=== PATIENT | female | born 1965 | race Caucasian/White ===

== ENCOUNTER 2016-11-21 09:40 | Emergency (ER) | payer OTHER ==
[~2016-11-21] VITALS: Ht 165.1 cm; Wt 76.5 kg
[~2016-11-21 09:40] MED LIST: BACITUD TOP; CEPH-443 PO; HYDR-906 PO
[2016-11-21 09:42] VITALS: Ht 165.1 cm; Wt 76.5 kg
[2016-11-21] MEDS ORDERED: PANTOPRAZOLE (EC) 40 MG TAB PO ONE (10:30)
[2016-11-21] MEDS ORDERED: IBUPROFEN 600 MG TAB PO ONE (10:30)
--- NOTE | 2016-11-21 10:50 | RADRPT ---
PROCEDURE: XR Left Ankle. CLINICAL INDICATION: Trauma TECHNIQUE: AP, oblique and lateral views of the left ankle were performed. COMPARISON: None. FINDINGS: Lateral soft tissue swelling. Approximate 7 mm fracture fragment arising from the anterior lateral calcaneus. No dislocation is seen. Plantar and small posterior calcaneal spurs. IMPRESSION: Lateral soft tissue swelling. Approximate 7 mm fracture fragment arising from the anterior lateral calcaneus. RPTAT: HJES .Randy Clayton MD, MD Date Time Electronically viewed and signed by .Randy Clayton MD, on 11/21/2016 10:50 .S/
--- NOTE | 2016-11-21 10:53 | RADRPT ---
PROCEDURE: XR Left Foot. CLINICAL INDICATION: Trauma TECHNIQUE: AP, lateral and oblique views of the left foot was obtained. The images were reviewed on a PACS workstation. COMPARISON: None. FINDINGS: There is an approximate 7 mm fracture fragment arising from the anterior lateral calcaneus. No disl ocation is seen. Plantar and small posterior calcaneal spurs. IMPRESSION: 7 mm fracture fragment arising from the anterior lateral calcaneus. RPTAT: HJES .Randy Clayton MD, MD Date Time Electronically viewed and signed by .Randy Clayton MD, on 11/21/2016 10:52 .S/
[2016-11-21] MEDS ORDERED: HYDR-906 PO (11:16)
[2016-11-21] MEDS ORDERED: NAPR-260 PO (11:16)
[2016-11-21 12:16] VITALS: BP 125/69; PULSE 69; RESP 20; TEMP 98.1
--- NOTE | 2016-11-21 17:27 | ERD ---
ER Documentation Chief Complaint Date/Time DATE: 11/21/16 TIME: 17:24 Chief Complaint LEFT KNEE PAIN, ANXIETY ATTACK HPI This patient is a 51-year-old female with no significant medical history presenting to the emergency department for left ankle pain which occurred after injury today during a exercising class. At approximately 9 AM the patient was exercising and twisted her left ankle. The patient had no head injury or loss of consciousness. The patient is taken no medication for relief of symptoms. There are no other symptoms to report currently. ROS All systems reviewed and are negative except as per history of present illness. Medications Home Meds Active Scripts Naproxen* (Naprosyn*) 500 Mg Tablet, 500 MG PO BID Y for PAIN AND/OR INFLAMMATION, #30 TAB Prov:TAVO DICKERSON PA-C 11/21/16 Hydrocodone/Acetaminophen ([place] 5-325 Tablet) 1 Each Tablet, 1 TAB PO Q6H Y for PAIN, #10 TAB Prov:TAVO DICKERSON PA-C 11/21/16 Cephalexin* (Keflex*) 500 Mg Capsule, 500 MG PO QID for 7 Days, CAP Prov:ELIA LEBRON PA-C 04/09/16 Bacitracin* (Bacitracin Oint (UD)*) 1 Applic Oint, 1 APPLIC TOP ONCE, #10 PKT APPLY TO Prov:ELIA LEBRON PA-C 04/09/16 Hydrocodone/Acetaminophen ([place] 5-325 Tablet) 1 Each Tablet, 1 EACH PO Q8 for 5 Days, TAB Prov:LUIS CABEZAS DO 03/22/16 Allergies Allergies: Coded Allergies: No Known Allergy (Unverified , 11/21/16) PMhx/Soc Medical and Surgical Hx: pt denies Medical Hx, pt denies Surgical Hx History of Surgery: No Anesthesia Reaction: No Hx Neurological Disorder: No Hx Respiratory Disorders: No Hx Cardiac Disorders: No Hx Psychiatric Problems: No Hx Miscellaneous Medical Probl: No Hx Alcohol Use: No Hx Substance Use: No Hx Tobacco Use: No Smoking Status: Never smoker FmHx Noncontributory for chief complaint Physical Exam Vitals Vital Signs Date Time Temp Pulse Resp B/P Pulse Ox O2 Delivery O2 Flow Rate FiO2 11/21/16 12:16 98.1 69 20 125/69 98 Room Air 11/21/16 09:42 98.1 89 24 159/78 99 Physical Exam Const: The patient is resting comfortably in no acute distress. Head: Atraumatic Eyes: Normal Conjunctiva ENT: Normal External Ears, Nose and Mouth. Neck: Full range of motion..~ No meningismus. Resp: Clear to auscultation bilaterally Cardio: Regular rate and rhythm, no murmurs Abd: Soft, non tender, non distended. Normal bowel sounds Skin: No petechiae or rashes Back: No midline or flank tenderness Ext: There is mild swelling to the lateral portion of the left malleolus. Limited range of motion secondary to pain. No ecchymosis or deformity noted. Neur: Awake and alert Psych: Normal Mood and Affect Results 24 hrs Current Medications Medications (Trade) Dose Ordered Sig/Ric Route PRN Reason Start Time Stop Time Status Last Admin Dose Admin Ibuprofen (Motrin) 600 mg ONCE ONCE PO 11/21/16 10:30 11/21/16 10:31 DC 11/21/16 10:51 Pantoprazole (Protonix Tab) 40 mg ONCE ONCE PO 11/21/16 10:30 11/21/16 10:31 DC 11/21/16 10:52 Procedures/MDM 51-year-old female presents secondary to complaints of left ankle pain after injury today. On physical examination there is some tenderness palpation of the left lateral malleolus. There is slight decreased rate active and passive range of motion secondary to pain. The patient was given p.o. Tylenol in the department and she was feeling improved on reevaluation. Radiology: PROCEDURE: XR Left Ankle. CLINICAL INDICATION: Trauma TECHNIQUE: AP, oblique and lateral views of the left ankle were performed. COMPARISON: None. FINDINGS: Lateral soft tissue swelling. Approximate 7 mm fracture fragment arising from the anterior lateral calcaneus. No dislocation is seen. Plantar and small posterior calcaneal spurs. IMPRESSION: Lateral soft tissue swelling. Approximate 7 mm fracture fragment arising from the anterior lateral calcaneus. RPTAT: HJES .Randy Clayton MD, MD Date Time Electronically viewed and signed by .Randy Clayton MD, on 11/21/2016 10:50 .S/ CC: TAVO DICKERSON PA-C PROCEDURE: XR Left Foot. CLINICAL INDICATION: Trauma TECHNIQUE: AP, lateral and oblique views of the left foot was obtained. The images were reviewed on a PACS workstation. COMPARISON: None. FINDINGS: There is an approximate 7 mm fracture fragment arising from the anterior lateral calcaneus. No dislocation is seen. Plantar and small posterior calcaneal spurs. IMPRESSION: 7 mm fracture fragment arising from the anterior lateral calcaneus. RPTAT: HJES .Randy Clayton MD, MD Date Time Electronically viewed and signed by .Randy Clayton MD, MD on 11/21/2016 10:52 .S/ CC: TAVO DICKERSON PA-C The patient was splinted in the department and was neurovascularly intact post splint application. The patient is stable for outpatient management with a prescription for [place], and naproxen. The patient was given crutches with training in the department. The patient is to follow-up with orthopedic surgery and was given information to do so. The patient is to also follow-up with her primary care physician. I have low suspicion for dislocation, cellulitis, or other emergent conditions. The patient was given strict ER return precautions and she demonstrates good understanding of this information. Departure Diagnosis: Primary Impression: Foot fracture, left Condition: Fair Patient Instructions: Foot and Ankle Exercises: Ankle Circles, Fracture, Lower Extremity Referrals: COMMUNITY CLINICS YOU HAVE RECEIVED A MEDICAL SCREENING EXAM AND THE RESULTS INDICATE THAT YOU DO NOT HAVE A CONDITION THAT REQUIRES URGENT TREATMENT IN THE EMERGENCY DEPARTMENT. FURTHER EVALUATION AND TREATMENT OF YOUR CONDITION CAN WAIT UNTIL YOU ARE SEEN IN YOUR DOCTORS OFFICE WITHIN THE NEXT 1-2 DAYS. IT IS YOUR RESPONSIBILITY TO MAKE AN APPOINTMENT FOR FOLOW-UP CARE. IF YOU HAVE A PRIMARY DOCTOR --you should call your primary doctor and schedule an appointment IF YOU DO NOT HAVE A PRIMARY DOCTOR YOU CAN CALL OUR PHYSICIAN REFERRAL HOTLINE AT IF YOU CAN NOT AFFORD TO SEE A PHYSICIAN YOU CAN CHOSE FROM THE FOLLOWING [facility] [address] [facility] [address] [facility] [address] [facility] [address] [facility] [phone] [facility]. [facility]. [address] [facility] Hours: Mon-Fri 9:00 AM - 5:00 PM Additional Instructions: Follow up with your PCP within the next 1-3 days for a more thorough evaluation and a possible referral to a specialist. Return the the emergency department immediately if symptoms worsen or change. If you have any questions regarding medications, ask your pharmacist or us before you leave. If any adverse reactions, occur while taking your medications, discontinue the treatment and return to the emergency department immediately. If any new or worsening symptoms, uncontrolled fevers, or other unexplained symptoms occur, return to the emergency department immediately. Take your medications as directed, and complete the entire course of treatment. TAVO DICKERSON PA-C Nov 21, 2016 17:27
== END 2016-11-21 12:18 | disposition home or self-care (01) ==
LOC: FTE 09:40
DX: S92.902A Unspecified fracture of left foot, initial encounter for closed fracture (principal); X50.1XXA Overexertion from prolonged static or awkward postures, initial encounter; Y92.9 Unspecified place or not applicable
CPT/HCPCS: 29515; 73610; 73630; Z7502; Z7610

== ENCOUNTER 2017-01-05 14:06 | Emergency (ER) | payer OTHER ==
[~2017-01-05] VITALS: Ht 167.6 cm; Wt 85.0 kg
[~2017-01-05 14:06] MED LIST changes: +NAPR-260 PO
[2017-01-05 14:11] VITALS: Ht 167.6 cm; Wt 85.0 kg
[2017-01-05] MEDS ORDERED: HYDROCODONE/APAP (5/325) TAB PO ONE (15:00)
[2017-01-05] MEDS ORDERED: DIAZEPAM 5 MG TAB PO ONE (15:00)
--- NOTE | 2017-01-05 15:11 | ERA ---
ER Documentation Chief Complaint Date/Time DATE: 01/05/17 TIME: 15:08 Chief Complaint left arm pain x1wk radiating to shoulder & neck, denies injury HPI This is a 51-year-old female presenting with a chief complaint of left arm pain and swelling 2 weeks. Patient's pain is worsened over the past 2 days. Patient also complains of slight pain in the left side of the neck worse while irritating headache. Patient has been taken ibuprofen with mild to moderate relief of symptoms. Patient denies recollection of onset. Pain is worse with movement and palpation according to patient. Patient denies any medical conditions or current medications. Patient has no other complaints at this time. ROS All systems reviewed and are negative except as per history of present illness. Medications Home Meds Active Scripts Acetaminophen* (Tylenol*) 325 Mg Tablet, 1 TAB PO Q8 Y for PAIN AND OR ELEVATED TEMP, #20 TAB Prov:KULDEEP MANZO PA-C 01/05/17 Naproxen* (Naprosyn*) 500 Mg Tablet, 500 MG PO BID Y for PAIN AND/OR INFLAMMATION, #30 TAB Prov:TAVO DICKERSON PA-C 11/21/16 Hydrocodone/Acetaminophen ([place] 5-325 Tablet) 1 Each Tablet, 1 TAB PO Q6H Y for PAIN, #10 TAB Prov:TAVO DICKERSON PA-C 11/21/16 Cephalexin* (Keflex*) 500 Mg Capsule, 500 MG PO QID for 7 Days, CAP Prov:ELIA LEBRON PA-C 04/09/16 Bacitracin* (Bacitracin Oint (UD)*) 1 Applic Oint, 1 APPLIC TOP ONCE, #10 PKT APPLY TO Prov:ELIA LEBRON PA-C 04/09/16 Hydrocodone/Acetaminophen ([place] 5-325 Tablet) 1 Each Tablet, 1 EACH PO Q8 for 5 Days, TAB Prov:LUIS CABEZAS DO 03/22/16 Allergies Allergies: Coded Allergies: No Known Allergy (Unverified , 11/21/16) PMhx/Soc History of Surgery: No Anesthesia Reaction: No Hx Neurological Disorder: No Hx Respiratory Disorders: No Hx Cardiac Disorders: No Hx Psychiatric Problems: No Hx Miscellaneous Medical Probl: No Hx Alcohol Use: No Hx Substance Use: No Hx Tobacco Use: No Physical Exam Vitals Vital Signs Date Time Temp Pulse Resp B/P Pulse Ox O2 Delivery O2 Flow Rate FiO2 01/05/17 14:11 98.4 64 20 164/79 97 Physical Exam Const: Obese 51-year-old female Head: Atraumatic Eyes: Normal Conjunctiva ENT: Normal External Ears, Nose and Mouth. Neck: Tightness appreciated in the lateral neck muscles. Full range of motion..~ No meningismus. Resp: Clear to auscultation bilaterally Cardio: Regular rate and rhythm, no murmurs Abd: Soft, non tender, non distended. Normal bowel sounds Skin: No petechiae or rashes Back: No midline or flank tenderness Ext: Mild swelling is appreciable on physical exam of the left upper extremity overlying the humerus. Strength and range of motion is within normal limits. Radial pulses 2+ bilaterally and capillary refill less than 2 seconds bilaterally. Neur: Awake and alert. Neurovascularly intact bilaterally. Psych: Normal Mood and Affect Results 24 hrs Current Medications Medications (Trade) Dose Ordered Sig/Ric Route PRN Reason Start Time Stop Time Status Last Admin Dose Admin Diazepam (Valium) 10 mg ONCE ONCE PO 01/05/17 15:00 01/05/17 15:00 DC Acetaminophen/ Hydrocodone Bitart ([place] (5/325)) 1 tab ONCE ONCE PO 01/05/17 15:00 01/05/17 15:09 DC Acetaminophen (Tylenol Tab) 650 mg ONCE ONCE PO 01/05/17 15:30 01/05/17 15:31 DC Procedures/MDM 51-year-old female being evaluated and worked up for left shoulder and humerus pain. Patient was tender to palpation along the mid humerus. X-ray was taken to rule out bony pathology. Radiologist read the x-ray and the results were as follows: 2 mm calcification on the medial side of the distal diaphysis. Otherwise unremarkable radiograph. Most likely diagnosis is cervical radiculopathy. Patient will be given acetaminophen for discomfort and advised to follow-up with primary care provider in the next 1-3 days for further evaluation and possible referral to a specialist. I presented the case to my attending Dr. Seay who agrees with the assessment and plan. At this time I very low suspicion of neurovascular compromise or endangerment of the limb. Patient will be discharged with discharge instructions and return precautions. Departure Diagnosis: Primary Impression: Cervical radiculopathy Condition: Serious Additional Instructions: Follow up with your PCP within the next 1-3 days for a more thorough evaluation and a possible referral to a specialist. Return the the emergency department immediately if symptoms worsen or change. If you have any questions regarding medications, ask your pharmacist or us before you leave. If any adverse reactions occur while taking your medications, discontinue the treatment and return to the emergency department immediately. Take your medications as directed, and complete the entire course of treatment. KULDEEP MANZO PA-C Jan 05, 2017 15:11
[2017-01-05] MEDS ORDERED: ACETAMINOPHEN 325 MG TAB PO ONE (15:30)
--- NOTE | 2017-01-05 16:56 | RADRPT ---
PROCEDURE: Left humerus x-ray CLINICAL INDICATION: Pain and swelling. TECHNIQUE: AP and lateral views of the humerus were obtained. COMPARISON: None FINDINGS: The soft tissues and bony elements are normal. There is a 2 mm calcific density over the medial aspe ct of the left elbow. Joint spaces are normal. No subcutaneous emphysema or foreign body is identi fied. There is no radiographic evidence of osteomyelitis. IMPRESSION: 1. Normal left humerus. A 2 mm calcification is identified adjacent to the distal diaphysis along t he medial side of the left humerus. RPTAT:AAJJ Physician Jessica Date Time Electronically viewed and signed by Physician Jessica on 01/05/2017 16:56 BJ/
[2017-01-05] MEDS ORDERED: ACET325T33 PO (17:03)
[2017-01-05] MEDS ORDERED: IBUP-1542 PO (17:16)
== END 2017-01-05 17:19 | disposition home or self-care (01) ==
LOC: FTE 14:06
DX: M54.12 Radiculopathy, cervical region (principal)
CPT/HCPCS: 73060; Z7502

== ENCOUNTER 2017-02-21 14:08 | Emergency (ER) | payer OTHER ==
[~2017-02-21] VITALS: Ht 154.9 cm; Wt 89.0 kg
[~2017-02-21 14:08] MED LIST changes: +ACET325T33 PO; +IBUP-1542 PO
[2017-02-21 14:10] VITALS: Ht 154.9 cm; Wt 89.0 kg
--- NOTE | 2017-02-21 14:38 | ERA ---
ER Documentation Chief Complaint Date/Time DATE: 02/21/17 TIME: 14:33 Chief Complaint 8/10 head and throat pain x 1 day HPI This is a 52-year-old female presented with a chief complaint of nose pain, and pharyngitis 1 month. Patient states that she has not been evaluated for this yet. Patient denies fever, weight loss, headache, changes in vision/hearing, stiff neck, difficulty breathing, chest pain, shortness of breath, back pain, nausea, vomiting, diarrhea, constipation, dysuria, hematuria, or discharge. Denies recent surgeries or antibiotic use, sick contacts, and recent travel. Vaccination status is up to date. Nursing notes and previous documents have been reviewed and are consistent with the patients given history. ROS All systems reviewed and are negative except as per history of present illness. Medications Home Meds Active Scripts Ibuprofen* (Motrin*) 600 Mg Tab, 600 MG PO Q6H Y for PAIN AND OR ELEVATED TEMP, #30 TAB Prov:KULDEEP MANZO PA-C 01/05/17 Ibuprofen* (Motrin*) 600 Mg Tab, 600 MG PO Q6H Y for PAIN AND OR ELEVATED TEMP, #30 TAB Prov:KULDEEP MANZO PA-C 01/05/17 Acetaminophen* (Tylenol*) 325 Mg Tablet, 1 TAB PO Q8 Y for PAIN AND OR ELEVATED TEMP, #20 TAB Prov:KULDEEP MANZO PA-C 01/05/17 Naproxen* (Naprosyn*) 500 Mg Tablet, 500 MG PO BID Y for PAIN AND/OR INFLAMMATION, #30 TAB Prov:TAVO DICKERSON PA-C 11/21/16 Hydrocodone/Acetaminophen ([place] 5-325 Tablet) 1 Each Tablet, 1 TAB PO Q6H Y for PAIN, #10 TAB Prov:TAVO DICKERSON PA-C 11/21/16 Cephalexin* (Keflex*) 500 Mg Capsule, 500 MG PO QID for 7 Days, CAP Prov:ELIA LEBRON PA-C 04/09/16 Bacitracin* (Bacitracin Oint (UD)*) 1 Applic Oint, 1 APPLIC TOP ONCE, #10 PKT APPLY TO Prov:ELIA LEBRON PA-C 04/09/16 Hydrocodone/Acetaminophen ([place] 5-325 Tablet) 1 Each Tablet, 1 EACH PO Q8 for 5 Days, TAB Prov:LUIS CABEZAS DO 03/22/16 Allergies Allergies: Coded Allergies: No Known Allergy (Unverified , 11/21/16) PMhx/Soc History of Surgery: No Anesthesia Reaction: No Hx Neurological Disorder: No Hx Respiratory Disorders: No Hx Cardiac Disorders: No Hx Psychiatric Problems: No Hx Miscellaneous Medical Probl: No Hx Alcohol Use: No Hx Substance Use: No Hx Tobacco Use: No Physical Exam Vitals Vital Signs Date Time Temp Pulse Resp B/P Pulse Ox O2 Delivery O2 Flow Rate FiO2 02/21/17 14:10 98.2 63 16 139/68 99 Physical Exam Const: Overweight 52-year-old female no acute distress. Head: Normocephalic, Atraumatic. Eyes: Non-injected; No discharge or foreign body. EOMI and SAMI bilaterally. Ears: Normal External Ears, EACs clear, TM normal bilaterally without erythema. Nose: Mild tenderness with palpation of the bridge of the nose, no sinus tenderness. Normal external nose; no discharge, or septal deviation. Oral: No oral edema visualized. Mucous membranes moist and pink. Neck: No cervical lymphadenopathy, masses or goiter palpated. Trachea midline. Supple ~ No meningismus. Pulm: Good air movement in upper and lower respiratory tracts. No dyspnea, stridor, tripoding or drooling. Clear to auscultation bilaterally. Cardio: Regular rate and rhythm; No murmurs, gallops or rubs auscultated. No JVD grossly observed. Radial and posterior tibial pulses 2+ bilaterally. No cyanosis. Capillary refill less than 2 seconds. Abd: Soft, non tender, non distended. No guarding, masses. Normal bowel sounds. No McBurney's point tenderness. MS: Normal motor strength, normal tone with gross examination. Skin: No petechiae or rashes. No ulcer, induration, jaundice. Good turgor. Back: No midline, flank or CVA tenderness. Ext: No edema or palpable cord. Normal movement of all extremities grossly observed. Neur: Awake, alert and oriented x3. Neurovascularly intact bilaterally. Psych: Normal Mood and Affect. Procedures/MDM Well-appearing 52-year-old female presents with a chief complaint of nose tenderness. Palpation of the nose revealed mild tenderness. Patient is presenting ibuprofen with minimal to moderate relief of symptoms. At this time of little suspicion for intracranial pathology, cavernous sinus thrombosis, bony pathology, or obstructive airway disease. Most likely diagnosis is tenderness of nose from unknown etiology. Patient's vitals are stable and her current condition is appropriate for discharge. Departure Diagnosis: Primary Impression: Nose pain Additional Impression: Headache Qualified Code: R51 - Nonintractable headache, unspecified chronicity pattern , unspecified headache type Condition: Stable Patient Instructions: Self-Care for Headaches Additional Instructions: Follow up with your PCP within the next 1-3 days for a more thorough evaluation and a possible referral to a specialist. Return the the emergency department immediately if symptoms worsen or change. Continue taking ibuprofen as directed. KULDEEP MANZO PA-C Feb 21, 2017 14:38
== END 2017-02-21 14:40 | disposition home or self-care (01) ==
LOC: FTE 14:08
DX: J34.89 Other specified disorders of nose and nasal sinuses (principal); R51 Headache
CPT/HCPCS: 99282

== ENCOUNTER 2019-03-18 02:02 | Emergency (ER) | payer OTHER ==
[~2019-03-18] VITALS: Ht 152.4 cm; Wt 87.0 kg
[~2019-03-18 02:02] MED LIST changes: +CARI350T PO; +HYDR-4011 PO; -HYDR-906 PO; -NAPR-260 PO; +NAPR-985 PO
[2019-03-18 02:17] VITALS: Ht 152.4 cm; Wt 87.0 kg
--- NOTE | 2019-03-18 02:49 | ERD ---
ER Documentation Chief Complaint Chief Complaint L low back pain x 3 days, worst today HPI The patient is a 54-year-old female, presenting to the ER because of acute on chronic low back pain requiring heavy lifting at work, had similar symptoms previously, denies fecal/urinary incontinence, denies fever, chills, neck pain, chest pain, dyspnea, abdominal pain, vomiting, dysuria, diarrhea, constipation. She does not smoke nor drink, denies any history of IV drug abuse. Medical history: Chronic low back pain Past surgical history: None ROS All systems reviewed and are negative except as per history of present illness. Medications Home Meds Active Scripts Carisoprodol* (Soma*) 350 Mg Tablet, 350 MG PO TID PRN for MUSCLE SPASMS, #15 TAB Prov:KULDEEP KAHN MD 03/18/19 Ibuprofen* (Motrin*) 600 Mg Tab, 600 MG PO Q6H PRN for PAIN AND OR ELEVATED TEMP, #30 TAB Prov:KULDEEP KAHN MD 03/18/19 Ibuprofen* (Motrin*) 600 Mg Tab, 600 MG PO Q6H PRN for PAIN AND OR ELEVATED TEMP, #30 TAB Prov:KULDEEP MANZO PA-C 01/05/17 Ibuprofen* (Motrin*) 600 Mg Tab, 600 MG PO Q6H PRN for PAIN AND OR ELEVATED TEMP, #30 TAB Prov:KULDEEP MANZO PA-C 01/05/17 Acetaminophen* (Tylenol*) 325 Mg Tablet, 1 TAB PO Q8 PRN for PAIN AND OR ELEVATED TEMP, #20 TAB Prov:KULDEEP MANZO PA-C 01/05/17 Naproxen* (Naprosyn*) 500 Mg Tablet, 500 MG PO BID PRN for PAIN AND/OR INFLAMMATION, #30 TAB Prov:TAVO DICKERSON PA-C 11/21/16 Hydrocodone/Acetaminophen ([place] 5-325 Tablet) 1 Each Tablet, 1 TAB PO Q6H PRN for PAIN, #10 TAB Prov:TAVO DICKERSON PA-C 11/21/16 Cephalexin* (Keflex*) 500 Mg Capsule, 500 MG PO QID for 7 Days, CAP Prov:ELIA LEBRON PA-C 04/09/16 Bacitracin* (Bacitracin Oint (UD)*) 1 Applic Oint, 1 APPLIC TOP ONCE, #10 PKT APPLY TO Prov:ELIA LEBRON PA-C 04/09/16 Hydrocodone/Acetaminophen ([place] 5-325 Tablet) 1 Each Tablet, 1 EACH PO Q8 for 5 Days, TAB Prov:LUIS CABEZAS DO 03/22/16 Allergies Allergies: Coded Allergies: No Known Allergy (Unverified , 11/21/16) PMhx/Soc History of Surgery: No Anesthesia Reaction: No Hx Neurological Disorder: No Hx Respiratory Disorders: No Hx Cardiac Disorders: No Hx Psychiatric Problems: No Hx Miscellaneous Medical Probl: No Hx Alcohol Use: No Hx Substance Use: No Hx Tobacco Use: No Physical Exam Vitals Vital Signs Date Temp Pulse Resp B/P (MAP) Pulse Ox O2 O2 Flow FiO2 Time Delivery Rate 03/18/19 98.2 66 17 146/74 100 Room Air 04:45 (98) 03/18/19 98.7 57 20 158/70 99 02:17 (99) Physical Exam Const: No acute distress. Head: Atraumatic. Eyes: Normal Conjunctiva. ENT: Normal External Ears, Nose and Mouth. Neck: Full range of motion. No meningismus. Resp: Clear to auscultation bilaterally. Cardio: Regular rate and rhythm. Abd: Soft, non distended, normal bowel sounds, minimal left lumbar tenderness, negative straight leg raising test Skin: No petechiae or rashes. Back: No midline or flank tenderness. Ext: No cyanosis, or edema. Neur: Awake and alert. No focal deficit Psych: Normal Mood and Affect. Results 24 hrs Laboratory Tests Test 03/18/19 03:26 Bedside Urine pH (LAB) 7.0 Bedside Urine Protein (LAB) Negative Bedside Urine Glucose (UA) Negative Bedside Urine Ketones (LAB) Negative Bedside Urine Blood Trace-intact Bedside Urine Nitrite (LAB) Negative Bedside Urine Leukocyte Esterase (L Trace Current Medications Medications Dose Sig/Ric Start Time Status Last (Trade) Ordered Route PRN Stop Time Admin Dose Reason Admin Ketorolac 60 mg ONCE STAT 03/18/19 DC 03/18/19 Tromethamine IM 02:53 03:21 (Toradol) 03/18/19 02:54 Procedures/MDM MEDICAL MAKING DECISION: The patient is a 54-year-old female, presenting with acute on chronic low back pain, treated with Toradol 60 mg IM for pain with good response, is stable for outpatient follow-up The differential diagnoses considered include but are not limited to caudal equina syndrome, spinal abscess, DJD, diskitis, lumbar radiculopathy. Departure Diagnosis: Primary Impression: Acute exacerbation of chronic low back pain Condition: Good Comments She was discharged with Motrin and Soma I discussed the findings with the patient. I advised the patient to follow-up with the primary physician in about 1-2 days, sooner if needed and return if any concern. Disclaimer: Inadvertent spelling and grammatical errors are likely due to EHR/di ctation software use and do not reflect on the overall quality of patient care. Also, please note that the electronic time recorded on this note does not necessarily reflect the actual time of the patient encounter. KULDEEP KAHN MD Mar 18, 2019 02:49
[2019-03-18] MEDS ORDERED: KETOROLAC 60 MG INJ IM STA (02:53)
[2019-03-18 04:45] VITALS: BP 146/74; PULSE 66; RESP 17
== END 2019-03-18 04:46 | disposition home or self-care (01) ==
LOC: E/R 02:02
DX: M54.5 Low back pain (principal)
CPT/HCPCS: 81003; 96372; J1885; Z7502